=== PATIENT | female | born 1940 | race Caucasian/White ===

== ENCOUNTER → 2016-10-01 | Outpatient (CLI) | payer MEDICARE, BC | LOC: MW.CHUR 09:14 | PROVIDERS: ATTEND Urology | DX: Z85.51 Personal history of malignant neoplasm of bladder (principal) | CPT/HCPCS: 36415; 82565; 84520 ==

== ENCOUNTER → 2016-10-03 | Outpatient (CLI) | payer MEDICARE, BC ==
[~2016-10-03] MED LIST: Iopamidol 755 MG/ML 500 ML Multipack Bottle IVPUSH STA
--- NOTE | 2016-10-03 11:53 | CR ---
EXAMINATION: Two-view chest (PA and Lateral views). HISTORY: Personal history of malignant neoplasm. Comparison: 09/22/2015 FINDINGS: The trachea is midline. The cardiomediastinal silhouette is within normal limits. No pulmonary infil trates, effusions or pneumothorax. Mild aortic calcifications are noted. Chronic interstitial change s Osseous structures appear unremarkable. IMPRESSION: No acute cardiopulmonary process.
--- NOTE | 2016-10-03 14:41 | CT ---
CT of the abdomen and pelvis with contrast. HISTORY: History of bladder cancer TECHNIQUE: Axial CT images were obtained of the abdomen and pelvis following administration of 60 mL of [id number] right antecubital fossa without complication. Coronal and sagittal reconstructions ob tained. The images were delayed due to contrast leakage. Comparison: CT dated 09/22/2015. FINDINGS: There is scarring within the lung bases. No pleural effusion. The liver demonstrates a mildly nodular contour. The Spleen, adrenal glands, and pancreas appear nor mal. Cholelithiasis without evidence of cholecystitis. There are a few mildly prominent retroperiton eal lymph nodes noted however grossly unchanged. There is a stable 2.2 cm cyst within the body of th e pancreas. The kidneys enhance and function symmetrically without evidence of obstructive uropathy. The large and small bowel are normal in caliber without evidence of obstruction. The appendix appear s normal. Cystectomy with neobladder. No bulky pelvic lymphadenopathy or free pelvic fluid. No suspicious osseous abnormalities identified. IMPRESSION: 1. Cystectomy with urinary diversion. 2. No evidence of recurrent or metastatic disease. The liver demonstrates a mildly nodular contour. 3. Stable small pancreatic cyst. 4. Cholelithiasis without evidence of cholecystitis.
== END ==
LOC: MW.DI 09:04
PROVIDERS: ATTEND Urology
DX: K86.2 Cyst of pancreas (principal); K80.20 Calculus of gallbladder without cholecystitis without obstruction; Z90.6 Acquired absence of other parts of urinary tract; Z85.51 Personal history of malignant neoplasm of bladder
CPT/HCPCS: 71020; 74177; G0463; Q9967

== ENCOUNTER 2021-06-18 15:19 | Emergency (ER) | payer MEDICARE, BC ==
[2021-06-18] MEDS ORDERED: Sodium Chloride 0.9% 10 ML Syringe FLUSH PRN (16:32)
[2021-06-18] MEDS ORDERED: Sodium Chloride 0.9% 2.5 ML Syringe FLUSH PRN (16:32)
[2021-06-18] MEDS ORDERED: Sodium Chloride 0.9% 1,000 ML IV ONE (16:32)
[2021-06-18] MEDS ORDERED: Ondansetron 4 MG/2 ML SDV IVPUSH ONE (16:32)
[2021-06-18 17:35] LABS: CORONAVIRUS COVID-19 NAA NEGATIVE (NEGATIVE); INFLUENZA A NAA NEGATIVE (NEGATIVE); INFLUENZA B NAA NEGATIVE (NEGATIVE)
[2021-06-18 17:42] LABS: BLOOD UREA NITROGEN,BUN 42 mg/dL (7.0-18.0); CHLORIDE,CL 101 mmol/L (98-107); GLUCOSE RANDOM 123 mg/dL (74-106); LIPASE 222 U/L (73-393); POTASSIUM,K 4.8 mmol/L (3.5-5.1); SODIUM,NA 135 mmol/L (136-145)
[2021-06-18 18:30] VITALS: BP 112/64; PULSE 72
== END 2021-06-18 18:34 | disposition home or self-care (01) ==
LOC: MW.ED 15:19
DX: E86.0 Dehydration (principal); R11.2 Nausea with vomiting, unspecified; R19.7 Diarrhea, unspecified; E78.00 Pure hypercholesterolemia, unspecified; I10 Essential (primary) hypertension; E11.9 Type 2 diabetes mellitus without complications; E03.9 Hypothyroidism, unspecified; Z79.899 Other long term (current) drug therapy; Z79.84 Long term (current) use of oral hypoglycemic drugs; Z20.822 Contact with and (suspected) exposure to COVID-19
CPT/HCPCS: 0240U; 36415; 74022; 80053; 83690; 85025; 96374; 99284; J2405; J7030

== ENCOUNTER 2022-06-19 09:26 | Emergency (ER) | payer MEDICARE, BC ==
[2022-06-19 10:17] VITALS: BP 124/89; PULSE 99
== END 2022-06-19 11:34 | disposition home or self-care (01) ==
LOC: MW.ED 09:26
DX: T83.192A Other mechanical complication of indwelling ureteral stent, initial encounter (principal); E11.9 Type 2 diabetes mellitus without complications; E03.9 Hypothyroidism, unspecified; I10 Essential (primary) hypertension; Z79.899 Other long term (current) drug therapy; Z79.84 Long term (current) use of oral hypoglycemic drugs
CPT/HCPCS: 99283

== ENCOUNTER 2022-11-03 16:53 | Inpatient (IN) | payer MEDICARE, BC ==
[2022-11-03 17:25] LABS: BILIRUBIN,URINE NEGATIVE (NEGATIVE); COLOR,URINE YELLOW; GLUCOSE,URINE NEGATIVE (NEGATIVE); KETONES,URINE NEGATIVE (NEGATIVE); LEUKOCYTE ESTERASE,URINE TRACE (NEGATIVE); NITRITE,URINE POSITIVE (NEGATIVE); OCCULT BLOOD,URINE TRACE-INTACT (NEGATIVE); PROTEIN,URINE 30 mg/dL (NEGATIVE); UROBILINOGEN,URINE 0.2 EU/dL (<2.0)
[2022-11-03 17:26] LABS: APPEARANCE,URINE HAZY
[2022-11-03 17:31] LABS: BACTERIA,URINE 1+ (NEGATIVE); EPITHELIAL CELLS,URINE RARE (NONE-FEW); RBC,URINE 0-1 (0-2/HPF); WBC,URINE 0-2 (0-5/HPF)
[2022-11-03] MEDS ORDERED: Sodium Chloride 0.9% 10 ML Syringe FLUSH PRN (17:31)
[2022-11-03] MEDS ORDERED: Sodium Chloride 0.9% 2.5 ML Syringe FLUSH PRN (17:31)
[2022-11-03 17:32] LABS: AMORPHOUS SEDIMENT,URINE FEW (NEGATIVE)
[2022-11-03 17:53] LABS: BASOPHILS PERCENT AUTO 0.1 % (0.0-1.5); EOSINOPHILS PERCENT AUTO 0.2 % (0.0-7.0); HEMATOCRIT 32.8 % (36.0-46.0); HEMOGLOBIN 11.9 g/dL (12.0-16.0); LYMPHOCYTES ABSOLUTE AUTO 0.6 K/uL (0.6-2.4); LYMPHOCYTES PERCENT AUTO 5.9 % (16.0-40.0); MEAN CORPUSCULAR HEMOGLOBIN 31.5 pg (27.0-32.0); MEAN CORPUSCULAR HGB CONC 36.3 g/dL (31.0-37.0); MEAN CORPUSCULAR VOLUME 86.8 fL (80.0-98.0); MONOCYTES ABSOLUTE AUTO 0.4 K/uL (0.0-0.8); MONOCYTES PERCENT AUTO 4.7 % (0.0-15.0); NEUTROPHILS ABSOLUTE AUTO 8.3 K/uL (1.4-5.7); NEUTROPHILS PERCENT AUTO 89.1 % (48.0-80.0); NRBC ABSOLUTE 0 K/uL; PLATELET COUNT,PLT 195 K/uL (150-400); RED BLOOD CELL COUNT 3.78 M/uL (4.30-5.90)
[2022-11-03] MEDS ORDERED: Piperacillin/Tazobactam 3.375 GM in Sodium Chloride 0.9% 100 ML IV STA (17:53)
[2022-11-03] MEDS ORDERED: Acetaminophen 500 MG Tab PO STA (17:53)
[2022-11-03] MEDS ORDERED: Sodium Chloride 0.9% 500 ML IV STA (17:53)
[2022-11-03 18:15] LABS: A/G RATIO 0.9 (0.9-1.6); ALBUMIN 3.4 g/dL (3.4-5.0); BILIRUBIN TOTAL 0.8 mg/dL (0.2-1.0); CALCIUM 9.5 mg/dL (8.5-10.1); CREATININE 1.5 mg/dL (0.6-1.0); EST CRCL DRUG DOSING (CG) 22.47 mL/min; POTASSIUM,K 4.6 mmol/L (3.5-5.1); PROTEIN TOTAL,TP 7.3 g/dL (6.4-8.2)
[2022-11-03] MEDS ORDERED: VANCOmycin 1.25 GM/250 ML 1.25 GM in Premix Bag 1 BAG IV ONE (18:15)
[2022-11-03 18:29] LABS: INR 1.03 (0.86-1.11)
[2022-11-03] MEDS ORDERED: Iopamidol 755 MG/ML 500 ML Multipack Bottle IVPUSH ONE (18:33)
[2022-11-03] MEDS ORDERED: 50% Dextrose in Water 50 ML Syringe IVPUSH PRN (22:51)
[2022-11-03] MEDS ORDERED: Glucagon,Human Recombinant 1 MG Vial IM PRN (22:51)
[2022-11-03] MEDS ORDERED: oxyCODONE 5 MG Tab PO PRN (23:02)
[2022-11-03] MEDS ORDERED: Morphine 2 MG/ML SYRINGE IVPUSH PRN (23:02)
[2022-11-03] MEDS ORDERED: Ondansetron 4 MG/2 ML SDV IVPUSH PRN (23:02)
[2022-11-03] MEDS: Insulin Aspart 100 Units/ML 3 ML Pen SUBCUT SCH (23:35)
[2022-11-03] MEDS: Sodium Chloride 0.9% 1,000 ML IV SCH (23:52)
[2022-11-03] MEDS: Piperacillin/Tazobactam 3.375 GM in Sodium Chloride 0.9% 100 ML IV SCH (23:53)
[2022-11-04] MEDS: Piperacillin/Tazobactam 3.375 GM in Sodium Chloride 0.9% 100 ML IV SCH ×2 (06:03→12:38)
[2022-11-04 06:18] LABS: BASOPHILS PERCENT AUTO 0.2 % (0.0-1.5); EOSINOPHILS ABSOLUTE AUTO 0.1 K/uL (0.0-0.7); EOSINOPHILS PERCENT AUTO 2.9 % (0.0-7.0); HEMATOCRIT 30.6 % (36.0-46.0); HEMOGLOBIN 10.8 g/dL (12.0-16.0); LYMPHOCYTES ABSOLUTE AUTO 1.1 K/uL (0.6-2.4); LYMPHOCYTES PERCENT AUTO 24.7 % (16.0-40.0); MEAN CORPUSCULAR HGB CONC 35.3 g/dL (31.0-37.0); MEAN CORPUSCULAR VOLUME 87.9 fL (80.0-98.0); MONOCYTES ABSOLUTE AUTO 0.4 K/uL (0.0-0.8); MONOCYTES PERCENT AUTO 8.5 % (0.0-15.0); NEUTROPHILS ABSOLUTE AUTO 2.8 K/uL (1.4-5.7); NEUTROPHILS PERCENT AUTO 63.7 % (48.0-80.0); NRBC ABSOLUTE 0 K/uL; PLATELET COUNT,PLT 182 K/uL (150-400); RED BLOOD CELL COUNT 3.48 M/uL (4.30-5.90); WHITE BLOOD CELL COUNT,WBC 4.45 K/uL (4.0-11.0)
[2022-11-04 06:43] LABS: A/G RATIO 0.8 (0.9-1.6); ALBUMIN 2.9 g/dL (3.4-5.0); BILIRUBIN TOTAL 0.8 mg/dL (0.2-1.0); CALCIUM 8.8 mg/dL (8.5-10.1); CARBON DIOXIDE,CO2 23.8 mmol/L (21.0-32.0); CREATININE 1.7 mg/dL (0.6-1.0); EST CRCL DRUG DOSING (CG) 19.83 mL/min; POTASSIUM,K 4.5 mmol/L (3.5-5.1); PROTEIN TOTAL,TP 6.4 g/dL (6.4-8.2)
[2022-11-04] MEDS: Insulin Aspart 100 Units/ML 3 ML Pen SUBCUT SCH ×2 (06:45→11:30)
[2022-11-04] MEDS ORDERED: Sodium Chloride 0.9% 2.5 ML Syringe FLUSH PRN (07:51)
[2022-11-04] MEDS ORDERED: Sodium Chloride 0.9% 10 ML Syringe FLUSH PRN (07:51)
[2022-11-04] MEDS: Sodium Chloride 0.9% 1,000 ML IV SCH (08:39)
[2022-11-04] MEDS ORDERED: Levofloxacin 750 MG Tab PO ONE (13:58)
[2022-11-04 15:13] VITALS: BP 117/71; PULSE 56
== END 2022-11-04 15:00 | disposition home health service (06) | DRG 389 ==
LOC: MW.ED 16:53 → MW.MS 22:17
PROVIDERS: ADMIT Internal Medicine; ATTEND Internal Medicine
DX: K56.609 Unspecified intestinal obstruction, unspecified as to partial versus complete obstruction (principal); E87.1 Hypo-osmolality and hyponatremia; Z66 Do not resuscitate; N12 Tubulo-interstitial nephritis, not specified as acute or chronic; N13.30 Unspecified hydronephrosis; N17.9 Acute kidney failure, unspecified; K59.00 Constipation, unspecified; K44.9 Diaphragmatic hernia without obstruction or gangrene; E86.0 Dehydration; F03.90 Unspecified dementia, unspecified severity, without behavioral disturbance, psychotic disturbance, mood disturbance, and anxiety; I10 Essential (primary) hypertension; E03.9 Hypothyroidism, unspecified; E11.9 Type 2 diabetes mellitus without complications; E78.00 Pure hypercholesterolemia, unspecified; Z79.890 Hormone replacement therapy; Z79.899 Other long term (current) drug therapy; Z85.51 Personal history of malignant neoplasm of bladder; Z90.6 Acquired absence of other parts of urinary tract; Z93.6 Other artificial openings of urinary tract status; Z98.890 Other specified postprocedural states; Z90.710 Acquired absence of both cervix and uterus
CPT/HCPCS: 36415; 74177; 80053; 81001; 83605; 83690; 85025; 85610; 87040; 87086; A9270; J2543; J3370; J3490 ×2; J7030; Q9967; 82947; 96365; 96367; 99223; 99238; 99285; 99285-25